=== PATIENT | female | born 1985 | race Caucasian/White ===

== ENCOUNTER 2020-04-19 12:07 | Outpatient (REF) | payer MEDICAID, SELFPAY | END 2020-04-19 12:08 | disposition home or self-care (01) | LOC: HO.LAB 12:07 | PROVIDERS: Visit Provider Internal Medicine | DX: Z20.828 Contact with and (suspected) exposure to other viral communicable diseases (principal) | CPT/HCPCS: C9803; U0003 ==

== ENCOUNTER → 2020-05-07 13:42 | Outpatient (BNVA) | payer MEDICAID, SELFPAY | PROVIDERS: Visit Provider Physician Assistant | DX: Z76.89 Persons encountering health services in other specified circumstances (principal) ==

== ENCOUNTER → 2020-06-19 08:26 | Outpatient (BNVA) | payer MEDICAID, SELFPAY | PROVIDERS: Visit Provider Dietitian, Registered | DX: Z76.89 Persons encountering health services in other specified circumstances (principal) ==

== ENCOUNTER → 2020-09-13 09:59 | Outpatient (BNVA) | payer MEDICAID, SELFPAY | PROVIDERS: Visit Provider Physician Assistant | DX: E66.3 Overweight (principal); Z34.90 Encounter for supervision of normal pregnancy, unspecified, unspecified trimester; K90.49 Malabsorption due to intolerance, not elsewhere classified; Z98.84 Bariatric surgery status | CPT/HCPCS: 99212 ==

== ENCOUNTER 2020-09-20 08:46 | Outpatient (REF) | payer MEDICAID, SELFPAY ==
[2020-09-20 09:41] LABS: MANUAL DIFF FLAG NO
[2020-09-20 09:59] LABS: Basophils Percent Auto 0.3 % (0-2); Eosinophils Absolute Auto 0.1 X10*3/uL (0.0-0.4); Eosinophils Percent Auto 0.5 % (0-4); Hematocrit 38.1 % (37-47); Hemoglobin 13.2 g/dl (12.0-16.0); Imm Gran Abs Auto 0.03 X10*3/uL (0.00-0.03); Imm Gran Pct Auto 0.3 % (0.0-0.4); Lymphocytes Absolute Auto 3.2 X10*3/uL (1.2-4.9); Lymphocytes Percent Auto 28.6 % (20-40); Mean Corpuscular HGB Conc 34.6 g/dl (31.0-35.0); Mean Corpuscular Hemoglobin 32.1 pg (27.0-33.0); Mean Corpuscular Volume 92.7 fL (80-98); Mean Platelet Volume 9.8 fL (9.4-12.3); Monocytes Absolute Auto 0.7 X10*3/uL (0.1-1.2); Monocytes Percent Auto 6.1 % (2-11); Neutrophils Absolute Auto 7.2 X10*3/uL (2.0-8.3); Neutrophils Percent Auto 64.2 % (45-73); Platelet Count 227 X10*3/uL (160-400); Red Blood Count 4.11 X10*6/uL (4.20-5.50); Red Cell Distribution Width 12.8 % (11.0-16.0); White Blood Count 11.3 X10*3/uL (4.8-10.8)
[2020-09-20 10:02] LABS: Estimated Average Glucose 80 mg/dL; Hemoglobin A1c % 4.4 %
[2020-09-20 10:17] LABS: Alanine Aminotransferase 10 U/L (0-31); Albumin Level 3.6 g/dL (3.5-5.0); Alkaline Phosphatase 45 U/L (39-117); Anion Gap 10 (12-20); Aspartate Amino Transferase 14 U/L (5-31); Bilirubin Total 0.8 mg/dL (0.0-1.0); Blood Urea Nitrogen 10 mg/dL (9-16); C Reactive Protein 0.05 mg/dL (< or = 0.50); Calcium 8.8 mg/dL (8.4-10.2); Carbon Dioxide 26 mmol/L (22-29); Chloride 104 mmol/L (96-108); Cholesterol 276 mg/dL; Estimated Glomerular Filt Rate > 60; Glucose Fasting 69 mg/dL (60-99); HDL Cholesterol 136 mg/dL; Iron 145 mcg/dL (30-160); LDL Cholesterol Calculated 123 mg/dl; Percent Iron Saturation 40 % (15-50); Potassium 4.2 mmol/L (3.3-5.1); Sodium 136 mmol/L (135-145); Total Iron Binding Capacity 365 mcg/dL (228-428); Total Protein 6.1 g/dL (6.5-8.0); Triglycerides 86 mg/dL; Unsaturated Iron Binding 220 ug/dL
[2020-09-20 10:38] LABS: Ferritin 25 ng/mL (10-122); TSH reflex Free T4 0.77 uIU/mL (0.32-4.0); Vitamin D 25-OH Total 28.4 ng/mL (>30)
[2020-09-20 10:52] LABS: Folate 18.2 ng/mL (> or = 4.0); Vitamin B12 278 pg/mL (200-900)
[2020-09-21 06:16] LABS: Insulin Level Total 4.9 uIU/mL
[2020-09-21 11:26] LABS: Calcium (PTHI) 8.7 mg/dL (8.6-10.2); PTHI 27 pg/mL (14-64)
[2020-09-23 00:12] LABS: Zinc 72 mcg/dL (60-130)
[2020-09-23 12:46] LABS: Vitamin B1 17 nmol/L (8-30)
[2020-09-24 09:38] LABS: Vitamin A 46 mcg/dL (38-98)
== END 2020-09-20 08:47 | disposition home or self-care (01) ==
LOC: HO.LAB 08:46
PROVIDERS: PCP Internal Medicine; Visit Provider Physician Assistant
DX: O99.210 Obesity complicating pregnancy, unspecified trimester (principal); E66.3 Overweight; K90.49 Malabsorption due to intolerance, not elsewhere classified; Z98.84 Bariatric surgery status; Z3A.00 Weeks of gestation of pregnancy not specified
CPT/HCPCS: 36415; 80053; 80061; 82306; 82607; 82728; 82746; 83036; 83525; 83540; 83970; 84425; 84443; 84590; 84630; 85025; 86140

== ENCOUNTER → 2020-09-21 10:26 | Outpatient (BNVA) | payer MEDICAID, SELFPAY | PROVIDERS: Visit Provider Dietitian, Registered | DX: Z98.84 Bariatric surgery status (principal) | CPT/HCPCS: 97803 ==

== ENCOUNTER → 2020-11-21 15:58 | Outpatient (BNVA) | payer MEDICAID, SELFPAY | PROVIDERS: Visit Provider Physician Assistant | DX: K90.49 Malabsorption due to intolerance, not elsewhere classified (principal); Z98.84 Bariatric surgery status; Z34.92 Encounter for supervision of normal pregnancy, unspecified, second trimester; Z3A.25 25 weeks gestation of pregnancy | CPT/HCPCS: 99212 ==

== ENCOUNTER → 2021-01-09 08:07 | Outpatient (BNVA) | payer MEDICAID, SELFPAY | PROVIDERS: Visit Provider Dietitian, Registered | DX: O99.283 Endocrine, nutritional and metabolic diseases complicating pregnancy, third trimester (principal); E66.3 Overweight; O99.843 Bariatric surgery status complicating pregnancy, third trimester; Z71.3 Dietary counseling and surveillance; Z3A.32 32 weeks gestation of pregnancy | CPT/HCPCS: 97803 ==

== ENCOUNTER → 2021-02-05 08:05 | Outpatient (BNVA) | payer MEDICAID, SELFPAY | PROVIDERS: Visit Provider Dietitian, Registered | DX: Z34.90 Encounter for supervision of normal pregnancy, unspecified, unspecified trimester (principal); Z98.84 Bariatric surgery status | CPT/HCPCS: 97803 ==

== ENCOUNTER 2021-02-13 07:11 | Outpatient (REF) | payer MEDICAID, SELFPAY ==
[2021-02-13 08:12] LABS: MANUAL DIFF FLAG NO
[2021-02-13 08:19] LABS: Basophils Percent Auto 0.2 % (0-2); Eosinophils Absolute Auto 0.1 X10*3/uL (0.0-0.4); Eosinophils Percent Auto 0.6 % (0-4); Hematocrit 35.5 % (37-47); Hemoglobin 12.1 g/dl (12.0-16.0); Imm Gran Abs Auto 0.04 X10*3/uL (0.00-0.03); Imm Gran Pct Auto 0.4 % (0.0-0.4); Lymphocytes Absolute Auto 3.3 X10*3/uL (1.2-4.9); Lymphocytes Percent Auto 34.6 % (20-40); Mean Corpuscular HGB Conc 34.1 g/dl (31.0-35.0); Mean Corpuscular Hemoglobin 31.4 pg (27.0-33.0); Mean Corpuscular Volume 92.2 fL (80-98); Mean Platelet Volume 9.7 fL (9.4-12.3); Monocytes Absolute Auto 0.7 X10*3/uL (0.1-1.2); Monocytes Percent Auto 7.9 % (2-11); Neutrophils Absolute Auto 5.3 X10*3/uL (2.0-8.3); Neutrophils Percent Auto 56.3 % (45-73); Platelet Count 214 X10*3/uL (160-400); Red Blood Count 3.85 X10*6/uL (4.20-5.50); Red Cell Distribution Width 12.4 % (11.0-16.0); White Blood Count 9.4 X10*3/uL (4.8-10.8)
[2021-02-13 08:34] LABS: Estimated Average Glucose 88 mg/dL; Hemoglobin A1c % 4.7 %
[2021-02-13 08:54] LABS: Alanine Aminotransferase 11 U/L (0-31); Albumin Level 3.2 g/dL (3.5-5.0); Alkaline Phosphatase 80 U/L (39-117); Anion Gap 15 (12-20); Aspartate Amino Transferase 15 U/L (5-31); Bilirubin Total 0.7 mg/dL (0.0-1.0); Blood Urea Nitrogen 9 mg/dL (9-16); C Reactive Protein 0.08 mg/dL (< or = 0.50); Calcium 8.6 mg/dL (8.4-10.2); Carbon Dioxide 22 mmol/L (22-29); Chloride 103 mmol/L (96-108); Cholesterol 283 mg/dL; Estimated Glomerular Filt Rate > 60; Glucose Fasting 73 mg/dL (60-99); HDL Cholesterol 128 mg/dL; Iron 121 mcg/dL (30-160); LDL Cholesterol Calculated 131 mg/dl; Percent Iron Saturation 29 % (15-50); Sodium 136 mmol/L (135-145); Total Iron Binding Capacity 414 mcg/dL (228-428); Total Protein 5.6 g/dL (6.5-8.0); Triglycerides 121 mg/dL; Unsaturated Iron Binding 293 ug/dL
[2021-02-13 08:56] LABS: Ferritin 21 ng/mL (10-122); TSH reflex Free T4 1.51 uIU/mL (0.32-4.0); Vitamin D 25-OH Total 26.3 ng/mL (>30)
[2021-02-13 09:35] LABS: Folate 18.6 ng/mL (> or = 4.0); Vitamin B12 205 pg/mL (200-900)
[2021-02-14 09:26] LABS: Insulin Level Total 10.5 uIU/mL
[2021-02-14 16:36] LABS: Calcium (PTHI) 8.2 mg/dL (8.6-10.2); PTHI 46 pg/mL (14-64)
[2021-02-16 00:11] LABS: Zinc 57 mcg/dL (60-130)
[2021-02-17 10:10] LABS: Vitamin B1 9 nmol/L (8-30)
[2021-02-18 00:27] LABS: Vitamin A 27 mcg/dL (38-98)
== END 2021-02-13 07:12 | disposition home or self-care (01) ==
LOC: HO.LAB 07:11
PROVIDERS: PCP Internal Medicine; Visit Provider Physician Assistant
DX: O99.210 Obesity complicating pregnancy, unspecified trimester (principal); E66.01 Morbid (severe) obesity due to excess calories; O26.899 Other specified pregnancy related conditions, unspecified trimester; Z98.84 Bariatric surgery status
CPT/HCPCS: 36415; 80053; 80061; 82306; 82607; 82728; 82746; 83036; 83525; 83540; 83970; 84425; 84443; 84590; 84630; 85025; 86140; J1100

== ENCOUNTER 2021-02-13 07:52 | Outpatient (REF) | payer MEDICAID, SELFPAY | END 2021-02-13 07:53 | disposition home or self-care (01) | LOC: HO.HOSX 07:52 | PROVIDERS: Visit Provider Orthopaedic Surgery | DX: M79.645 Pain in left finger(s) (principal) | CPT/HCPCS: 20550; 99202 ==

== ENCOUNTER → 2021-10-01 14:32 | Outpatient (BNVA) | payer MEDICAID, SELFPAY | PROVIDERS: PCP Internal Medicine; Visit Provider Orthopaedic Surgery | DX: M65.4 Radial styloid tenosynovitis [de Quervain] (principal) | CPT/HCPCS: 20550; 99212; J1100 ==

== ENCOUNTER → 2022-02-19 14:53 | Outpatient (BNVA) | payer MEDICAID, SELFPAY | PROVIDERS: PCP Internal Medicine; Visit Provider Physician Assistant Surgical | DX: E66.9 Obesity, unspecified (principal); Z98.84 Bariatric surgery status; Z68.41 Body mass index [BMI] 40.0-44.9, adult | CPT/HCPCS: 99212 ==

== ENCOUNTER 2022-02-22 10:10 | Outpatient (REF) | payer MEDICAID, SELFPAY ==
[2022-02-22 10:28] LABS: MANUAL DIFF FLAG NO
[2022-02-22 11:11] LABS: Basophils Percent Auto 0.4 % (0-2); Eosinophils Percent Auto 0.7 % (0-4); Hemoglobin 13.6 g/dl (12.0-16.0); Lymphocytes Absolute Auto 2.9 X10*3/uL (1.2-4.9); Lymphocytes Percent Auto 50.2 % (20-40); Mean Corpuscular Hemoglobin 28.5 pg (27.0-33.0); Mean Corpuscular Volume 83.9 fL (80.0-98.0); Mean Platelet Volume 8.9 fL (9.4-12.3); Monocytes Absolute Auto 0.5 X10*3/uL (0.1-1.2); Monocytes Percent Auto 8.2 % (2-11); Neutrophils Absolute Auto 2.3 x10*3/uL (2.0-8.3); Neutrophils Percent Auto 40.5 % (45-73); Platelet Count 264 X10*3/uL (160-400); Red Blood Count 4.77 X10*6/uL (4.20-5.50); Red Cell Distribution Width 12.5 % (11.0-16.0); White Blood Count 5.7 X10*3/uL (4.8-10.8)
[2022-02-22 11:33] LABS: Estimated Average Glucose 100 mg/dL; Hemoglobin A1c % 5.1 %
[2022-02-22 11:54] LABS: Alanine Aminotransferase 13 U/L (0-31); Albumin Level 4.1 g/dL (3.5-5.0); Alkaline Phosphatase 98 U/L (39-117); Anion Gap 15 (12-20); Aspartate Amino Transferase 17 U/L (5-31); Bilirubin Total 0.9 mg/dL (0.0-1.0); Blood Urea Nitrogen 14 mg/dL (9-16); C Reactive Protein 0.11 mg/dL (< or = 0.50); Calcium 9.1 mg/dL (8.4-10.2); Carbon Dioxide 22 mmol/L (22-29); Chloride 104 mmol/L (96-108); Cholesterol 263 mg/dL; Estimated Glomerular Filt Rate > 60; Glucose Random 81 mg/dL (60-115); HDL Cholesterol 95 mg/dL; Iron 98 mcg/dL (30-160); LDL Cholesterol Calculated 156 mg/dl; Percent Iron Saturation 27 % (15-50); Potassium 4.3 mmol/L (3.3-5.1); Sodium 137 mmol/L (135-145); Total Iron Binding Capacity 359 mcg/dL (228-428); Total Protein 7.1 g/dL (6.5-8.0); Triglycerides 64 mg/dL; Unsaturated Iron Binding 261 ug/dL
[2022-02-22 12:19] LABS: Insulin 7 uU/mL (2-29); Vitamin D 25-OH Total 16.9 ng/mL (>30)
[2022-02-22 12:23] LABS: Ferritin 17 ng/mL (10-122); TSH reflex Free T4 0.54 uIU/mL (0.32-4.0)
[2022-02-22 16:15] LABS: Vitamin B12 288 pg/mL (200-900)
[2022-02-24 17:22] LABS: PTHI 151 pg/mL (16-77)
[2022-02-25 16:56] LABS: Zinc 66 mcg/dL (60-130)
[2022-02-27 12:02] LABS: Vitamin A 38 mcg/dL (38-98)
[2022-02-28 06:32] LABS: Vitamin B1 8 nmol/L (8-30)
== END 2022-02-22 10:11 | disposition home or self-care (01) ==
LOC: HO.LAB 10:10
PROVIDERS: PCP Internal Medicine; Visit Provider Physician Assistant Surgical
DX: Z98.84 Bariatric surgery status (principal)
CPT/HCPCS: 36415; 80053; 80061; 82306; 82607; 82728; 82746; 83036; 83525; 83540; 83970; 84425; 84443; 84590; 84630; 85025; 86140

== ENCOUNTER → 2022-03-18 11:03 | Outpatient (BNVA) | payer MEDICAID, SELFPAY | PROVIDERS: PCP Internal Medicine; Visit Provider Orthopaedic Surgery | DX: M65.4 Radial styloid tenosynovitis [de Quervain] (principal) | CPT/HCPCS: 99212; J1100 ==

== ENCOUNTER → 2022-04-23 13:00 | Outpatient (BNVA) | payer MEDICAID, SELFPAY | PROVIDERS: PCP Internal Medicine; Visit Provider Orthopaedic Surgery | DX: M65.4 Radial styloid tenosynovitis [de Quervain] (principal) | CPT/HCPCS: 99212 ==

== ENCOUNTER 2022-05-21 09:49 | Emergency (ER) | payer OTHER, MEDICAID, SELFPAY ==
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
[2022-05-21 11:35] VITALS: BP 113/65; PULSE 75; RESP 18; TEMP 36.7; O2SAT 98; BMI 42.0
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
== END 2022-05-21 13:22 | disposition home or self-care (01) ==
PROVIDERS: Emergency Provider Emergency Medicine Emergency Medical Services; PCP Internal Medicine
DX: S39.012A Strain of muscle, fascia and tendon of lower back, initial encounter (principal); S13.4XXA Sprain of ligaments of cervical spine, initial encounter; M25.512 Pain in left shoulder; M54.2 Cervicalgia; R51.9 Headache, unspecified; V43.62XA Car passenger injured in collision with other type car in traffic accident, initial encounter; Y93.9 Activity, unspecified; Y92.410 Unspecified street and highway as the place of occurrence of the external cause; Y99.9 Unspecified external cause status
CPT/HCPCS: 73030; 99282; 99283

== ENCOUNTER 2022-11-17 12:04 | Outpatient (REF) | payer MEDICAID, SELFPAY ==
--- NOTE | ~2022-11-17 | US_ITS ---
EXAMINATION: US VENOUS ULTRASOUND WITH DOPPLER LOWER EXTREMITY, LEFT CLINICAL INFORMATION: Left calf pain. COMPARISON: None available. TECHNIQUE: Ultrasound of the deep veins is performed from the hip to the calf with compression sonography and color and pulse Doppler assessment. Spectral analysis with color-flow imaging is performed. FINDINGS: There is normal venous compression and respiratory variation and augmented flow. The visualized common femoral vein, superficial femoral vein, profunda femoral vein, popliteal vein, and the trifurcation region shows no evidence of deep venous thrombosis. If the patient's symptoms persist, followup ultrasound in 5 days 7 days might be of value to exclude proximal propagation from a non-visualized calf vein. US/US venous duplex LE IMPRESSION: No DVT demonstrated in the left lower extremity.
== END 2022-11-17 12:05 | disposition home or self-care (01) ==
LOC: HO.XRAY 12:04
PROVIDERS: PCP Internal Medicine; Visit Provider Internal Medicine
DX: O26.891 Other specified pregnancy related conditions, first trimester (principal); R60.0 Localized edema
CPT/HCPCS: 93971

== ENCOUNTER 2024-01-04 15:06 | Outpatient (REF) | payer MEDICAID, SELFPAY ==
[2024-01-04 15:54] LABS: MANUAL DIFF FLAG NO
[2024-01-04 16:01] LABS: Basophils Percent Auto 0.2 % (0-2); Eosinophils Absolute Auto 0.1 X10*3/uL (0.0-0.4); Eosinophils Percent Auto 0.5 % (0-4); Hematocrit 41.4 % (37.0-47.0); Hemoglobin 13.7 g/dl (12.0-16.0); Imm Gran Abs Auto 0.02 X10*3/uL (0.00-0.03); Imm Gran Pct Auto 0.2 % (0.0-0.4); Lymphocytes Absolute Auto 4.3 X10*3/uL (1.2-4.9); Lymphocytes Percent Auto 39.4 % (20-40); Mean Corpuscular HGB Conc 33.1 g/dl (31.0-35.0); Mean Corpuscular Volume 90.8 fL (80.0-98.0); Mean Platelet Volume 9.3 fL (9.4-12.3); Monocytes Absolute Auto 0.6 X10*3/uL (0.1-1.2); Monocytes Percent Auto 5.9 % (2-11); Neutrophils Absolute Auto 5.8 x10*3/uL (2.0-8.3); Neutrophils Percent Auto 53.8 % (45-73); Platelet Count 277 X10*3/uL (160-400); Red Blood Count 4.56 X10*6/uL (4.20-5.50); Red Cell Distribution Width 12.8 % (11.0-16.0); White Blood Count 10.8 X10*3/uL (4.8-10.8)
[2024-01-04 16:05] LABS: INTERNATIONAL NORM RATIO 0.9 (0.9-1.1); Prothrombin Time 10.7 SEC (11.1-13.3)
[2024-01-04 16:08] LABS: Partial Thromboplastin Time 30.1 SEC (26.0-36.8)
[2024-01-04 16:09] LABS: D Dimer High Sensitivity < 150 NG/ML
== END 2024-01-04 15:07 | disposition home or self-care (01) ==
LOC: HO.HHCL 15:06
PROVIDERS: Visit Provider Internal Medicine
DX: T14.8XXA Other injury of unspecified body region, initial encounter (principal); W57.XXXA Bitten or stung by nonvenomous insect and other nonvenomous arthropods, initial encounter
CPT/HCPCS: 36415; 85025; 85379; 85610; 85730

== ENCOUNTER 2024-04-15 16:10 | Outpatient (REF) | payer MEDICAID, SELFPAY ==
[2024-04-18 11:29] LABS: TS Negative Control Passed; TS Panel A 0; TS Panel B 0; TS Positive Control Passed; TSpotTB Negative (Negative)
== END 2024-04-15 16:11 | disposition home or self-care (01) ==
LOC: HO.CHCLDS 16:10
PROVIDERS: Visit Provider Internal Medicine
DX: Z01.419 Encounter for gynecological examination (general) (routine) without abnormal findings (principal)
CPT/HCPCS: 36415; 86481

== ENCOUNTER 2024-05-18 11:56 | Outpatient (REF) | payer MEDICAID, SELFPAY ==
[2024-05-18 14:11] LABS: MANUAL DIFF FLAG NO
[2024-05-18 14:18] LABS: Basophils Percent Auto 0.4 % (0-2); Eosinophils Absolute Auto 0.1 X10*3/uL (0.0-0.4); Eosinophils Percent Auto 0.7 % (0-4); Hematocrit 39.5 % (37.0-47.0); Hemoglobin 13.2 g/dl (12.0-16.0); Imm Gran Abs Auto 0.03 X10*3/uL (0.00-0.03); Imm Gran Pct Auto 0.3 % (0.0-0.4); Lymphocytes Absolute Auto 3.7 X10*3/uL (1.2-4.9); Lymphocytes Percent Auto 33.2 % (20-40); Mean Corpuscular HGB Conc 33.4 g/dl (31.0-35.0); Mean Corpuscular Hemoglobin 30.3 pg (27.0-33.0); Mean Corpuscular Volume 90.8 fL (80.0-98.0); Mean Platelet Volume 9.8 fL (9.4-12.3); Monocytes Absolute Auto 0.7 X10*3/uL (0.1-1.2); Neutrophils Absolute Auto 6.6 x10*3/uL (2.0-8.3); Neutrophils Percent Auto 59.4 % (45-73); Platelet Count 228 X10*3/uL (160-400); Red Blood Count 4.35 X10*6/uL (4.20-5.50); Red Cell Distribution Width 12.4 % (11.0-16.0); White Blood Count 11.2 X10*3/uL (4.8-10.8)
[2024-05-18 14:49] LABS: Alanine Aminotransferase 8 U/L (0-31); Albumin Level 3.6 g/dL (3.5-5.0); Alkaline Phosphatase 41 U/L (39-117); Anion Gap 6 (12-20); Aspartate Amino Transferase 17 U/L (5-31); Bilirubin Total 0.3 mg/dL (0.0-1.0); Blood Urea Nitrogen 16 mg/dL (9-16); Calcium 8.8 mg/dL (8.4-10.2); Carbon Dioxide 28 mmol/L (22-29); Chloride 109 mmol/L (96-108); Cholesterol 212 mg/dL (<200); Estimated Glomerular Filt Rate > 60; Glucose Fasting 79 mg/dL (60-99); HDL Cholesterol 78 mg/dL (>40); LDL Cholesterol Calculated 117 mg/dL (<100); Magnesium 2.1 mg/dL (1.6-2.6); Potassium 4.1 mmol/L (3.3-5.1); Sodium 139 mmol/L (135-145); Total Protein 6.1 g/dL (6.5-8.0); Triglycerides 86 mg/dL (<150)
[2024-05-18 15:04] LABS: TSH reflex Free T4 0.59 uIU/mL (0.32-4.0)
== END 2024-05-18 11:57 | disposition home or self-care (01) ==
LOC: HO.CHCLDS 11:56
PROVIDERS: Visit Provider Internal Medicine
DX: Z00.00 Encounter for general adult medical examination without abnormal findings (principal); R00.2 Palpitations; R42 Dizziness and giddiness
CPT/HCPCS: 36415; 80053; 80061; 83735; 84443; 85025